=== PATIENT | female | born 1995 | race Caucasian/White ===

== ENCOUNTER 2021-03-07 02:43 | Emergency (ER) | payer OTHER, SELFPAY ==
[2021-03-07 02:44] VITALS: BP 125/85; PULSE 135; RESP 16; TEMP 37; O2SAT 99; BMI 19.3
[2021-03-07 03:03] LABS: UPreg QC Valid YES; Urine Pregnancy NEGATIVE (NEGATIVE)
[2021-03-07 03:36] VITALS: BP 122/64; PULSE 120; RESP 18; TEMP 36.6; O2SAT 100
[2021-03-07 04:13] LABS: Appearance Urine HAZY; Color Urine YELLOW; Glucose Urine UA NEG (NEG); Leukocyte Esterase Urine 2+ (NEG); Nitrite Urine NEG (NEG); PH 6.5 (5.0-8.0); Urine Blood 2+ (NEG); Urine Ketones NEG (NEG); Urine Protein TRACE MG/DL (NEG-TRACE)
[2021-03-07 04:20] LABS: Mucus Urine 2+ /LPF; WBC Urine 30-49 /HPF (0-4)
[2021-03-07 04:21] LABS: Bacteria Urine 3+ /LPF; Squamous Epithelial Cell Urine 1+ /LPF
--- NOTE | 2021-03-07 04:29 | ED_ITS ---
HPI - General Adult General Chief complaint: General Medical Stated complaint: Pain Time Seen by Provider: 03/07/21 04:03 Source: patient Mode of arrival: ambulatory Limitations: no limitations History of Present Illness HPI narrative: History of kidney stone noticed pain in the right flank earlier today later moved to the left flank no nausea no vomiting no dysuria no frequency no fever no chills pain started when patient was moving bowels. No vaginal discharge no pain related to the Bactrim pain does not increase on deep inspiration Related Data Previous Rx's Medication Instructions Recorded levofloxacin 500 mg tablet 500 mg PO DAILY 5 Days #5 tab 03/07/21 Allergies Allergy/AdvReac Type Severity Reaction Status Date / Time No Known Allergies Allergy Verified 03/07/21 04:04 Review of Systems Review of Systems: Yes all other systems are reviewed and are negative [facility] Past Medical History Medical History Anxiety IBS (irritable bowel syndrome) Kidney stone Social History Social History Alcohol intake: never Patient Tobacco Use Status: Never used Tobacco Use of substances other than those prescribed or required for medical reasons: No Advance Directives: No Advance Directives Information Provided: No Patient : No Physical Exam Vital Signs: Vital Signs: Last Vital Signs Temp 98.2 F 03/07/21 04:43 Pulse 112 H 03/07/21 04:43 Resp 18 03/07/21 04:43 BP 118/64 03/07/21 04:43 Pulse Ox 100 03/07/21 04:43 Body Mass Index 19.3 Appearance: Alert. Oriented X3. No acute distress. Eyes: No pallor or icterus ENT: Pharynx normal. Oral Mucosa moist Neck: Normal inspection. Neck supple. CVS: Normal heart rate and rhythm. Pulses normal. Respiratory: No respiratory distress. Equal air entry bilateral, no wheezing/rales/rhonchi Abdomen: Soft and nontender. Bowel sounds are present, no mass palpable, mild left CVA tenderness Skin: Skin warm and dry. Normal skin color. Normal skin turgor. Extremities: No lower extremity edema. No calf tenderness Neuro: Oriented X 3. Medical Decision Making Lab Data Lab results reviewed: Yes I reviewed the patient's lab results. Labs: Lab Results 03/07/21 03/07/21 Range/Units 02:54 02:54 Urine Color YELLOW Urine Appearance HAZY Urine pH 6.5 (5.0-8.0) Ur Specific [place] 1.020 (1.005-1.025) Urine Protein TRACE (NEG-TRACE) MG/DL Urine Glucose (UA) NEG (NEG) MG/DL Urine Ketones NEG (NEG) MG/DL Urine Blood 2+ H (NEG) Urine Nitrite NEG (NEG) Ur Leukocyte Esterase 2+ H (NEG) Urine RBC 10-14 H (0) /HPF Urine WBC 30-49 H (0-4) /HPF Ur Squamous Epith Cells 1+ /LPF Urine Bacteria 3+ /LPF Urine Mucus 2+ /LPF Urine Test NEGATIVE (NEGATIVE) Discharge Plan Discharge Clinical Impression: UTI (urinary tract infection) Qualifiers: Urinary tract infection type: acute cystitis Hematuria presence: with hematuria Qualified Code(s): N30.01 - Acute cystitis with hematuria Patient Disposition: Home, Self-Care Instructions: Urinary Tract Infection in Women (ED) Additional Instructions: Drink plenty of fluids Take antibiotic as advised Follow with PCP if not better Prescriptions: New levofloxacin 500 mg tablet 500 mg PO DAILY 5 Days Qty: 5 RF: 0 Interventions: ED Discharge Assessment Last Done: 03/07/21 04:42 Discharge Date/Time: 03/07/21 04:46
[2021-03-07] MEDS: levoFLOXacin 500 MG TABLET PO (04:40)
[2021-03-07 04:43] VITALS: BP 118/64; PULSE 112; RESP 18; TEMP 36.8; O2SAT 100
== END 2021-03-07 04:46 | disposition home or self-care (01) ==
PROVIDERS: Emergency Provider Internal Medicine
DX: N30.01 Acute cystitis with hematuria (principal); Z79.899 Other long term (current) drug therapy
CPT/HCPCS: 36415; 81001; 81025; 87086; 87088; 87186; 99283; 99284

== ENCOUNTER 2022-02-04 16:07 | Outpatient (REF) | payer OTHER, SELFPAY ==
[2022-02-04 16:16] LABS: MANUAL DIFF FLAG NO
[2022-02-04 16:21] LABS: Basophils Absolute Auto 0.1 X10*3/uL (0.0-0.2); Basophils Percent Auto 0.7 % (0-2); Eosinophils Absolute Auto 0.2 X10*3/uL (0.0-0.4); Eosinophils Percent Auto 1.6 % (0-4); Hematocrit 41.1 % (37.0-47.0); Hemoglobin 13.8 g/dl (12.0-16.0); Imm Gran Abs Auto 0.03 X10*3/uL (0.00-0.03); Imm Gran Pct Auto 0.3 % (0.0-0.4); Lymphocytes Absolute Auto 2.3 X10*3/uL (1.2-4.9); Lymphocytes Percent Auto 22.4 % (20-40); Mean Corpuscular HGB Conc 33.6 g/dl (31.0-35.0); Mean Corpuscular Hemoglobin 28.9 pg (27.0-33.0); Mean Corpuscular Volume 86.2 fL (80.0-98.0); Mean Platelet Volume 9.7 fL (9.4-12.3); Monocytes Absolute Auto 0.6 X10*3/uL (0.1-1.2); Monocytes Percent Auto 6.1 % (2-11); Neutrophils Percent Auto 68.9 % (45-73); Platelet Count 338 X10*3/uL (160-400); Red Blood Count 4.77 X10*6/uL (4.20-5.50); White Blood Count 10.1 X10*3/uL (4.8-10.8)
== END 2022-02-04 16:08 | disposition home or self-care (01) ==
LOC: HO.LAB 16:07
PROVIDERS: Visit Provider Obstetrics & Gynecology
DX: N92.1 Excessive and frequent menstruation with irregular cycle (principal)
CPT/HCPCS: 36415; 85025

== ENCOUNTER 2022-05-07 17:10 | Emergency (ER) | payer OTHER, SELFPAY ==
--- NOTE | ~2022-05-07 | US_ITS ---
EXAMINATION: US FIRST TRIMESTER CLINICAL INFORMATION: Vaginal bleeding LMP: Unknown Beta-hCG: Unknown COMPARISON: None available. TECHNIQUE: Transabdominal imaging was performed. FINDINGS: UTERUS AND INTRAUTERINE GESTATIONAL SAC: There is a single intrauterine gestational sac. CROWN-RUMP LENGTH (CRL) : 3.43 cm, estimated age 10 weeks 5 days, estimated date of confinement is 11/30/2022 YOLK SAC: Not found HEART MOTION: 174 BPM. SUBCHORIONIC HEMORRHAGE: None OVARIES: Right: Normal Left: Left ovarian cyst probably follicle 1.8 x 1.4 x 1.6 cm and 1.1 x 1.3 x 1 cm. FREE FLUID: None OTHER FINDINGS: None US/US OB <= 14 weeks fetus IMPRESSION: 1. Single live intrauterine . 2. Estimated age 10 weeks 5 days..
[2022-05-07 17:12] VITALS: BP 137/93; PULSE 90; RESP 18; TEMP 36.9; O2SAT 100; BMI 20.2
--- NOTE | 2022-05-07 17:23 | ED.PREGNANCY ---
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 <Juan Ramon Mullins MD - Last Filed: 05/07/22 17:36> Time Seen by Provider: 05/07/22 17:42 <Juan Ramon Mullins MD - Last Filed: 05/07/22 17:36> Source: patient <Fang Cisneros CNP - Last Filed: 05/07/22 23:17> Mode of arrival: ambulatory <Fang Cisneros CNP - Last Filed: 05/07/22 23:17> Limitations: no limitations <Fang Cisneros CNP - Last Filed: 05/07/22 23:17> History of Present Illness HPI Narrative: Patient is a 27-year-old female G3 T1 L1, reported 11 weeks gestation, last menstrual period unknown, on Depo Provera, estimated due date 11/30/2022 presenting to emergency department for evaluation of vaginal bleeding. She states that she has had ongoing nausea and vomiting for the past 3 weeks, provider was concerned about hyperemesis gravidarum. She was seen by her PCP 3 days ago and received IV fluids. Two days ago she was having brown spotting when she went to the bathroom, this morning spotting was also brown pus and became bright red in color, described as very small amounts noted with urination and upon wiping. Has associated suprapubic pain described as cramping. She endorses urinary frequency but denies dysuria. Denies fevers, chills, back pain. She does report that she has already had an ultrasound which has confirmed intrauterine gestation <Fang Cisneros CNP - Last Filed: 05/07/22 23:17> Related Data Home medications: Previous Rx's Medication Instructions Recorded levofloxacin 500 mg tablet 500 mg PO DAILY 5 days #5 tabs 03/07/21 <Juan Ramon Mullins MD - Last Filed: 05/07/22 17:36> Allergies/Adverse reactions: Allergies Allergy/AdvReac Type Severity Reaction Status Date / Time No Known Allergies Allergy Verified 03/07/21 04:04 <Juan Ramon Mullins MD - Last Filed: 05/07/22 17:36> Review of Systems Review of Systems: Constitutional : No Fever, No Chills ENT/Mouth : No sore throat, No Rhinorrhea Eyes: No Eye Pain, No Redness Cardiovascular : No Chest Pain, No SOB Respiratory : No Cough, No Sputum, No Wheezing Gastrointestinal : positive Nausea, positive Vomiting, No Diarrhea, positive abdominal pain, Genitourinary : positive irregular bleeding, No Dysuria, No Urinary Frequency, positive pelvic pain Musculoskeletal : No Myalgias Skin : No rash Neuro : No Weakness, No Headache Psych : No Anxiety/Panic, No Depression Heme/Lymph: No bruising, No Lymphadenopathy Endocrine : No Polyuria, No Polydipsia <Fang Cisneros CNP - Last Filed: 05/07/22 23:17> Yes all other systems are reviewed and are negative <Fang Cisneros CNP - Last Filed: 05/07/22 23:17> PMFSH Past Medical History Attestation statement: The following information was validated with the patient. <Fang Cisneros CNP - Last Filed: 05/07/22 23:17> Source: old records reviewed <Fang Cisneros CNP - Last Filed: 05/07/22 23:17> Medical History: Medical History Anxiety IBS (irritable bowel syndrome) Kidney stone <Juan Ramon Mullins MD - Last Filed: 05/07/22 17:36> Social History Social History: Social History Alcohol intake: never Patient Tobacco Use Status: Never used Tobacco Use of substances other than those prescribed or required for medical reasons: No Advance Directives: No Advance Directives Information Provided: No Patient : Yes <Juan Ramon Mullins MD - Last Filed: 05/07/22 17:36> Physical Exam Vital Signs: Vital Signs: Last Vital Signs Temp 98.5 F 05/07/22 17:12 Pulse 71 05/07/22 21:23 Resp 16 05/07/22 21:23 BP 119/77 05/07/22 21:23 Pulse Ox 100 05/07/22 21:23 O2 Del Method 05/07/22 21:23 BMI result Body Mass Index 20.2 <Juan Ramon Mullins MD - Last Filed: 05/07/22 17:36> Vital Signs: Last Vital Signs Temp 98.5 F 05/07/22 17:12 Pulse 71 05/07/22 21:23 Resp 16 05/07/22 21:23 BP 119/77 05/07/22 21:23 Pulse Ox 100 05/07/22 21:23 O2 Del Method 05/07/22 21:23 BMI result Body Mass Index 20.2 <Fang Cisneros CNP - Last Filed: 05/07/22 23:17> Appearance: Alert.?Oriented to person, place and time. No acute distress.?Normal affect. Eyes: Pupils equal, round and reactive to light.? ENT: Pharynx normal.?? Neck: Normal inspection.? Neck supple.?? CVS: Heart sounds normal. Normal heart rate and rhythm.? Pulses normal.?? Respiratory: No respiratory distress.? Lung sounds clear to auscultation bilaterally?? Abdomen: Soft and non-tender. Normoactive bowel sounds. ?No CVA tenderness Skin: Skin warm and dry.? Normal skin color.? Extremities: No lower extremity edema.? Neuro: Moves all extremities spontaneously. Sensation intact bilaterally. No focal neuro deficits. Ambulates with normal steady gait. Genitourinary:? Supervised by ED RN. Normal external appearance of urethra.? No lesions/lacerations or discharge or tenderness noted. No Bartholin cyst noted.? Speculum exam: normal appearance/palpation of vagina normal. Positive vaginal discharge. No swelling, erythema, laceratons, or active bleeding noted.?No foreign bodies noted.?Normal appearance of cervix. Normal palpation of cervix.? Cervical os is closed.? No abnormal cervical discharge noted.? No cervical lesion/mass.?? No cervical motion tenderness noted.? Negative chandelier sign.? Normal bimanual exam. Normal adnexa. . <Fang Cisneros CNP - Last Filed: 05/07/22 23:17> Course Course Course Narrative: RME: 27-year-old female (1 therapeutic ), unknown LMP (on Depo-Provera), EDC 11/30/2022 who presents emergency department for evaluation of nausea vomiting x3 weeks with vaginal bleeding which started on Thursday (3 days prior to evaluation). Patient was seen by her PCP on Thursday for IV fluid secondary to dehydration. Patient states that her pain is mainly suprapubic area when she describes the cramping sensation. She does have an ultrasound earlier in the rule out ectopic which was normal. She describes the bleeding as small amounts of bright red blood when she urinates or wipes herself. She has had urinary frequency but no dysuria. Vital signs did reveal an elevated blood pressure of 137/93 but the patient is anxious and in distress. Patient does have mild suprapubic tenderness, no CVA tenderness. I ordered a CBC, CMP, quantitative beta-hCG, urinalysis, ultrasound OB less than 14 weeks, ultrasound transvaginal. I also ordered normal saline 1 L IV and Reglan 10 mg IV. I offered Tylenol but the patient does not want this at this time for pain. <Juan Ramon Mullins MD - Last Filed: 05/07/22 17:36> Reevaluation(s) Reevaluation #1: Tolerated pelvic examination well, reported mild suprapubic cramping. No vaginal bleeding noted, no lesions or wounds. Cervical os is closed. Scant amount of white/yellow discharge, sample for bacterial vaginosis urine was obtained. Declined testing for chlamydia gonorrhea, states that she was just tested a couple weeks ago which was negative. CBC is overall unremarkable, no leukocytosis, normocytic anemia is present, does not meet transfusion criteria. CMP is normal. HCG within range for reported gestation Patient is Rh positive, would not require RhoGAM urinalysis with trace leukocyte esterase, squamous epithelial cells present, no WBC or bacteria seen, no microscopic hematuria. <Fang Cisneros CNP - Last Filed: 05/07/22 23:17> Time: 18:24 <Fang Cisneros CNP - Last Filed: 05/07/22 23:17> Reevaluation #2: Ultrasound reveals a single live intrauterine with estimated age 10 weeks 5 days, no subchorionic hemorrhage, otherwise appears unremarkable. Discussed these findings with patient. Advised outpatient follow-up with OB, discussed threatened , all questions answered. At this time she is stable for discharge home. <Fang Cisneros CNP - Last Filed: 05/07/22 23:17> Time: 21:13 <Fang Cisneros CNP - Last Filed: 05/07/22 23:17> Medications Administered Discontinued Medications Generic Name Dose Route Start Last Admin Trade Name Freq PRN Reason Stop Dose Admin Sodium Chloride 1,000 mls @ 999 mls/hr 05/07/22 17:29 05/07/22 18:58 Ns IV 05/07/22 18:29 Infused .Q1H1M STA Infusion Metoclopramide HCl 10 mg 05/07/22 17:29 05/07/22 21:21 Metoclopramide Hcl 10 Mg/2 Ml Vial IVPUSH 05/07/22 17:30 Not Given ONCE STA <Juan Ramon Mullins MD - Last Filed: 05/07/22 17:36> Medications Administered Discontinued Medications Generic Name Dose Route Start Last Admin Trade Name Freq PRN Reason Stop Dose Admin Sodium Chloride 1,000 mls @ 999 mls/hr 05/07/22 17:29 05/07/22 18:58 Ns IV 05/07/22 18:29 Infused .Q1H1M STA Infusion Metoclopramide HCl 10 mg 05/07/22 17:29 05/07/22 21:21 Metoclopramide Hcl 10 Mg/2 Ml Vial IVPUSH 05/07/22 17:30 Not Given ONCE STA <Fang Cisneros CNP - Last Filed: 05/07/22 23:17> Medical Decision Making Medical Decision Making MDM Narrative: Patient is a 27-year-old female G3 T1 L1 reportedly 11 weeks with past medical history of Anxiety, irritable bowel syndrome, renal calculi who presents to emergency department for evaluation of concern for vaginal bleeding. History of patient cannot state with certainty whether it is vaginal or urethral in nature, is only noted upon urination and when wiping. Pelvic examination is overall unremarkable, no vaginal bleeding noted, vaginal discharge present. Reviewed RME from above, labs, urinalysis, ultrasound pending at this time. <Fang Cisneros CNP - Last Filed: 05/07/22 23:17> Differential Diagnosis Differential Diagnoses: The differential diagnosis associated with the presentation includes <Fang Cisneros CNP - Last Filed: 05/07/22 23:17> Urinary tract infection, pyelonephritis, nephrolithiasis, threatened , ectopic though seems less likely given her report of prior ultrasound with confirmed intrauterine gestation <Fang Cisneros CNP - Last Filed: 05/07/22 23:17> Lab Data MDM Lab Attestation statement: I reviewed the patient's lab results. <Fang Cisneros CNP - Last Filed: 05/07/22 23:17> Result Diagrams: : 05/07/22 17:42 05/07/22 17:42 <Juan Ramon Mullins MD - Last Filed: 05/07/22 17:36> Labs: Lab Results 05/07/22 05/07/22 05/07/22 Range/Units 17:32 17:42 17:42 WBC 10.4 (4.8-10.8) X10*3/uL RBC 4.09 L (4.20-5.50) X10*6/uL Hgb 11.9 L (12.0-16.0) g/dl Hct 34.9 L (37.0-47.0) % MCV 85.3 (80.0-98.0) fL MCH 29.1 (27.0-33.0) pg MCHC 34.1 (31.0-35.0) g/dl RDW 12.0 (11.0-16.0) % Plt Count 305 (160-400) X10*3/uL MPV 10.0 (9.4-12.3) fL Immature Gran % (Auto) 0.3 (0.0-0.4) % Neut % (Auto) 66.6 (45-73) % Lymph % (Auto) 23.5 (20-40) % Andrew % (Auto) 8.1 (2-11) % Eos % (Auto) 1.0 (0-4) % Baso % (Auto) 0.5 (0-2) % Lymph # (Auto) 2.5 (1.2-4.9) X10*3/uL Andrew # (Auto) 0.8 (0.1-1.2) X10*3/uL Eos # (Auto) 0.1 (0.0-0.4) X10*3/uL Baso # (Auto) 0.1 (0.0-0.2) X10*3/uL Abs Immat Gran (auto) 0.03 (0.00-0.03) X10*3/uL Absolute Neuts (auto) 6.9 (2.0-8.3) x10*3/uL Absolute Nucleated RBC 0.000 (0.0-0.012) X10*3/uL Nucleated RBC % (auto) 0.0 (0.0-0.2) /100WBC Sodium 138 (135-145) mmol/L Potassium 3.6 (3.3-5.1) mmol/L Chloride 106 (96-108) mmol/L Carbon Dioxide 23 (22-29) mmol/L Anion Gap 13 (12-20) BUN 10 (9-16) mg/dL Creatinine 0.64 (0.5-1.4) mg/dL Estim Creat Clear Calc 102.5 Estimated GFR > 60 Random Glucose 100 (60-115) mg/dL Calcium 9.9 (8.4-10.2) mg/dL Total Bilirubin 0.5 (0.0-1.0) mg/dL AST 16 (5-31) U/L ALT 11 (0-31) U/L Alkaline Phosphatase 51 (39-117) U/L Total Protein 6.9 (6.5-8.0) g/dL Albumin 4.5 (3.5-5.0) g/dL Beta HCG, Quant > 355993 mIU/mL Urine Color Yellow Urine Appearance Clear Urine pH 6.5 (5.0-9.0) Ur Specific [place] 1.025 (1.005-1.025) Urine Protein Negative (Neg-Trace) mg/dL Urine Glucose (UA) Negative (Negative) mg/dL Urine Ketones Negative (Negative) mg/dL Urine Blood Negative (Negative) Urine Nitrite Negative (Negative) Ur Leukocyte Esterase Trace H (Negative) Urine RBC 0-2 (0-2) /HPF Urine WBC 0-5 (0-5) /HPF Ur Squamous Epith Cells 3-5 (0-2) /HPF Urine Bacteria None Seen (None Seen) Hyaline Casts 0-2 (0-2) /LPF Blood Type 05/07/22 Range/Units 17:42 WBC (4.8-10.8) X10*3/uL RBC (4.20-5.50) X10*6/uL Hgb (12.0-16.0) g/dl Hct (37.0-47.0) % MCV (80.0-98.0) fL MCH (27.0-33.0) pg MCHC (31.0-35.0) g/dl RDW (11.0-16.0) % Plt Count (160-400) X10*3/uL MPV (9.4-12.3) fL Immature Gran % (Auto) (0.0-0.4) % Neut % (Auto) (45-73) % Lymph % (Auto) (20-40) % Andrew % (Auto) (2-11) % Eos % (Auto) (0-4) % Baso % (Auto) (0-2) % Lymph # (Auto) (1.2-4.9) X10*3/uL Andrew # (Auto) (0.1-1.2) X10*3/uL Eos # (Auto) (0.0-0.4) X10*3/uL Baso # (Auto) (0.0-0.2) X10*3/uL Abs Immat Gran (auto) (0.00-0.03) X10*3/uL Absolute Neuts (auto) (2.0-8.3) x10*3/uL Absolute Nucleated RBC (0.0-0.012) X10*3/uL Nucleated RBC % (auto) (0.0-0.2) /100WBC Sodium (135-145) mmol/L Potassium (3.3-5.1) mmol/L Chloride (96-108) mmol/L Carbon Dioxide (22-29) mmol/L Anion Gap (12-20) BUN (9-16) mg/dL Creatinine (0.5-1.4) mg/dL Estim Creat Clear Calc Estimated GFR Random Glucose (60-115) mg/dL Calcium (8.4-10.2) mg/dL Total Bilirubin (0.0-1.0) mg/dL AST (5-31) U/L ALT (0-31) U/L Alkaline Phosphatase (39-117) U/L Total Protein (6.5-8.0) g/dL Albumin (3.5-5.0) g/dL Beta HCG, Quant mIU/mL Urine Color Urine Appearance Urine pH (5.0-9.0) Ur Specific [place] (1.005-1.025) Urine Protein (Neg-Trace) mg/dL Urine Glucose (UA) (Negative) mg/dL Urine Ketones (Negative) mg/dL Urine Blood (Negative) Urine Nitrite (Negative) Ur Leukocyte Esterase (Negative) Urine RBC (0-2) /HPF Urine WBC (0-5) /HPF Ur Squamous Epith Cells (0-2) /HPF Urine Bacteria (None Seen) Hyaline Casts (0-2) /LPF Blood Type O Positive <Juan Ramon Mullins MD - Last Filed: 05/07/22 17:36> Lab Results 05/07/22 05/07/22 05/07/22 Range/Units 17:32 17:42 17:42 WBC 10.4 (4.8-10.8) X10*3/uL RBC 4.09 L (4.20-5.50) X10*6/uL Hgb 11.9 L (12.0-16.0) g/dl Hct 34.9 L (37.0-47.0) % MCV 85.3 (80.0-98.0) fL MCH 29.1 (27.0-33.0) pg MCHC 34.1 (31.0-35.0) g/dl RDW 12.0 (11.0-16.0) % Plt Count 305 (160-400) X10*3/uL MPV 10.0 (9.4-12.3) fL Immature Gran % (Auto) 0.3 (0.0-0.4) % Neut % (Auto) 66.6 (45-73) % Lymph % (Auto) 23.5 (20-40) % Andrew % (Auto) 8.1 (2-11) % Eos % (Auto) 1.0 (0-4) % Baso % (Auto) 0.5 (0-2) % Lymph # (Auto) 2.5 (1.2-4.9) X10*3/uL Andrew # (Auto) 0.8 (0.1-1.2) X10*3/uL Eos # (Auto) 0.1 (0.0-0.4) X10*3/uL Baso # (Auto) 0.1 (0.0-0.2) X10*3/uL Abs Immat Gran (auto) 0.03 (0.00-0.03) X10*3/uL Absolute Neuts (auto) 6.9 (2.0-8.3) x10*3/uL Absolute Nucleated RBC 0.000 (0.0-0.012) X10*3/uL Nucleated RBC % (auto) 0.0 (0.0-0.2) /100WBC Sodium 138 (135-145) mmol/L Potassium 3.6 (3.3-5.1) mmol/L Chloride 106 (96-108) mmol/L Carbon Dioxide 23 (22-29) mmol/L Anion Gap 13 (12-20) BUN 10 (9-16) mg/dL Creatinine 0.64 (0.5-1.4) mg/dL Estim Creat Clear Calc 102.5 Estimated GFR > 60 Random Glucose 100 (60-115) mg/dL Calcium 9.9 (8.4-10.2) mg/dL Total Bilirubin 0.5 (0.0-1.0) mg/dL AST 16 (5-31) U/L ALT 11 (0-31) U/L Alkaline Phosphatase 51 (39-117) U/L Total Protein 6.9 (6.5-8.0) g/dL Albumin 4.5 (3.5-5.0) g/dL Beta HCG, Quant > 323365 mIU/mL Urine Color Yellow Urine Appearance Clear Urine pH 6.5 (5.0-9.0) Ur Specific [place] 1.025 (1.005-1.025) Urine Protein Negative (Neg-Trace) mg/dL Urine Glucose (UA) Negative (Negative) mg/dL Urine Ketones Negative (Negative) mg/dL Urine Blood Negative (Negative) Urine Nitrite Negative (Negative) Ur Leukocyte Esterase Trace H (Negative) Urine RBC 0-2 (0-2) /HPF Urine WBC 0-5 (0-5) /HPF Ur Squamous Epith Cells 3-5 (0-2) /HPF Urine Bacteria None Seen (None Seen) Hyaline Casts 0-2 (0-2) /LPF Blood Type 05/07/22 Range/Units 17:42 WBC (4.8-10.8) X10*3/uL RBC (4.20-5.50) X10*6/uL Hgb (12.0-16.0) g/dl Hct (37.0-47.0) % MCV (80.0-98.0) fL MCH (27.0-33.0) pg MCHC (31.0-35.0) g/dl RDW (11.0-16.0) % Plt Count (160-400) X10*3/uL MPV (9.4-12.3) fL Immature Gran % (Auto) (0.0-0.4) % Neut % (Auto) (45-73) % Lymph % (Auto) (20-40) % Andrew % (Auto) (2-11) % Eos % (Auto) (0-4) % Baso % (Auto) (0-2) % Lymph # (Auto) (1.2-4.9) X10*3/uL Andrew # (Auto) (0.1-1.2) X10*3/uL Eos # (Auto) (0.0-0.4) X10*3/uL Baso # (Auto) (0.0-0.2) X10*3/uL Abs Immat Gran (auto) (0.00-0.03) X10*3/uL Absolute Neuts (auto) (2.0-8.3) x10*3/uL Absolute Nucleated RBC (0.0-0.012) X10*3/uL Nucleated RBC % (auto) (0.0-0.2) /100WBC Sodium (135-145) mmol/L Potassium (3.3-5.1) mmol/L Chloride (96-108) mmol/L Carbon Dioxide (22-29) mmol/L Anion Gap (12-20) BUN (9-16) mg/dL Creatinine (0.5-1.4) mg/dL Estim Creat Clear Calc Estimated GFR Random Glucose (60-115) mg/dL Calcium (8.4-10.2) mg/dL Total Bilirubin (0.0-1.0) mg/dL AST (5-31) U/L ALT (0-31) U/L Alkaline Phosphatase (39-117) U/L Total Protein (6.5-8.0) g/dL Albumin (3.5-5.0) g/dL Beta HCG, Quant mIU/mL Urine Color Urine Appearance Urine pH (5.0-9.0) Ur Specific [place] (1.005-1.025) Urine Protein (Neg-Trace) mg/dL Urine Glucose (UA) (Negative) mg/dL Urine Ketones (Negative) mg/dL Urine Blood (Negative) Urine Nitrite (Negative) Ur Leukocyte Esterase (Negative) Urine RBC (0-2) /HPF Urine WBC (0-5) /HPF Ur Squamous Epith Cells (0-2) /HPF Urine Bacteria (None Seen) Hyaline Casts (0-2) /LPF Blood Type O Positive <Fang Cisneros CNP - Last Filed: 05/07/22 23:17> Radiology Impression Discussion of test interpretation with radiology: I have reviewed the radiologist's reading. <Fang Cisneros CNP - Last Filed: 05/07/22 23:17> Radiologist Impression: US/ OB <= 14 weeks fetus IMPRESSION: 1. Single live intrauterine . ? 2. Estimated age 10 weeks 5 days. <Fang Cisneros CNP - Last Filed: 05/07/22 23:17> Discharge Plan Discharge Clinical Impression: Threatened <Juan Ramon Mullins MD - Last Filed: 05/07/22 17:36> Patient Disposition: Home, Self-Care <Juan Ramon Mullins MD - Last Filed: 05/07/22 17:36> Instructions: Threatened Miscarriage (ED) <Juan Ramon Mullins MD - Last Filed: 05/07/22 17:36> Additional Instructions: As discussed, please continue to monitor this bleeding. Contact your OB provider in the morning to arrange for further follow-up and treatment You may return to emergency department with any new or worsening symptoms or concerns. You can take Tylenol 500 mg, 2 tablets (1,000mg) every 4-6 hours as needed for pain, but not to exceed 3 doses daily (3,000mg).? <Juan Ramon Mullins MD - Last Filed: 05/07/22 17:36> Prescriptions: No Action levofloxacin 500 mg tablet 500 mg PO DAILY 5 Days Qty: 5 0RF <Juan Ramon Mullins MD - Last Filed: 05/07/22 17:36> Referrals: Physician,Unknown J [Primary Care Provider] - <Juan Ramon Mullins MD - Last Filed: 05/07/22 17:36> Interventions: ED Discharge Assessment Last Done: 05/07/22 21:30 <Juan Ramon Mullins MD - Last Filed: 05/07/22 17:36> Discharge Date/Time: 05/07/22 21:32 <Juan Ramon Mullins MD - Last Filed: 05/07/22 17:36>
[2022-05-07 17:40] LABS: Appearance Urine Clear; Color Urine Yellow; Glucose Urine UA Negative (Negative); Leukocyte Esterase Urine Trace (Negative); Nitrite Urine Negative (Negative); PH 6.5 (5.0-9.0); Specific Gravity - Urine 1.025 (1.005-1.025); UMIC TRIGGER UACC YES; Urine Blood Negative (Negative); Urine Ketones Negative (Negative); Urine Protein Negative (Neg-Trace)
[2022-05-07 17:45] LABS: Bacteria Urine None Seen (None Seen); Hyaline Casts Urine 0-2 /LPF (0-2); RBC Urine 0-2 /HPF (0-2); WBC Urine 0-5 /HPF (0-5)
[2022-05-07 17:47] LABS: Basophils Absolute Auto 0.1 X10*3/uL (0.0-0.2); Basophils Percent Auto 0.5 % (0-2); Eosinophils Absolute Auto 0.1 X10*3/uL (0.0-0.4); Hematocrit 34.9 % (37.0-47.0); Hemoglobin 11.9 g/dl (12.0-16.0); Imm Gran Abs Auto 0.03 X10*3/uL (0.00-0.03); Imm Gran Pct Auto 0.3 % (0.0-0.4); Lymphocytes Absolute Auto 2.5 X10*3/uL (1.2-4.9); Lymphocytes Percent Auto 23.5 % (20-40); MANUAL DIFF FLAG NO; Mean Corpuscular HGB Conc 34.1 g/dl (31.0-35.0); Mean Corpuscular Hemoglobin 29.1 pg (27.0-33.0); Mean Corpuscular Volume 85.3 fL (80.0-98.0); Monocytes Absolute Auto 0.8 X10*3/uL (0.1-1.2); Monocytes Percent Auto 8.1 % (2-11); Neutrophils Absolute Auto 6.9 x10*3/uL (2.0-8.3); Neutrophils Percent Auto 66.6 % (45-73); Platelet Count 305 X10*3/uL (160-400); Red Blood Count 4.09 X10*6/uL (4.20-5.50); White Blood Count 10.4 X10*3/uL (4.8-10.8)
[2022-05-07] MEDS: 0.9 % Sodium Chloride 1,000 ML 999 ML IV (17:49)
[2022-05-07 17:50] VITALS: BP 122/88; PULSE 84; RESP 20; O2SAT 100
[2022-05-07 18:20] LABS: Alanine Aminotransferase 11 U/L (0-31); Albumin Level 4.5 g/dL (3.5-5.0); Alkaline Phosphatase 51 U/L (39-117); Anion Gap 13 (12-20); Aspartate Amino Transferase 16 U/L (5-31); Bilirubin Total 0.5 mg/dL (0.0-1.0); Blood Urea Nitrogen 10 mg/dL (9-16); Calcium 9.9 mg/dL (8.4-10.2); Carbon Dioxide 23 mmol/L (22-29); Chloride 106 mmol/L (96-108); Creatinine Clr Calc Pharmacy 102.5; Estimated Glomerular Filt Rate > 60; Glucose Random 100 mg/dL (60-115); Potassium 3.6 mmol/L (3.3-5.1); Sodium 138 mmol/L (135-145); Total Protein 6.9 g/dL (6.5-8.0)
[2022-05-07 19:00] VITALS: BP 126/84; PULSE 94; RESP 18; O2SAT 100
[2022-05-07 21:04] LABS: HCG Quantitative > 225000 mIU/mL
[2022-05-07 21:23] VITALS: BP 119/77; PULSE 71; RESP 16; O2SAT 100
[2022-05-08 12:18] LABS: BV Int Neg Control Negative (Negative); BV Int Pos Control Positive (Positive)
== END 2022-05-07 21:32 | disposition home or self-care (01) ==
PROVIDERS: Nurse Practitioner Family; Emergency Provider Emergency Medicine Emergency Medical Services
DX: O20.0 Threatened abortion (principal); Z3A.10 10 weeks gestation of pregnancy; O21.9 Vomiting of pregnancy, unspecified
CPT/HCPCS: 36415; 76801; 80053; 81001; 84702; 85025; 86900; 86901; 87480; 87510; 87660; 96360; 99284

== ENCOUNTER 2022-06-30 13:28 | Emergency (ER) | payer OTHER, SELFPAY | END 2022-06-30 15:40 | disposition left against medical advice (07) | PROVIDERS: Emergency Provider Emergency Medicine; PCP Internal Medicine | DX: I95.9 Hypotension, unspecified (principal) ==

== ENCOUNTER 2022-10-30 11:26 | Outpatient (REF) | payer OTHER, SELFPAY ==
[2022-10-30 11:36] LABS: MANUAL DIFF FLAG NO
[2022-10-30 11:50] LABS: Basophils Absolute Auto 0.1 X10*3/uL (0.0-0.2); Basophils Percent Auto 0.5 % (0-2); Eosinophils Absolute Auto 0.2 X10*3/uL (0.0-0.4); Eosinophils Percent Auto 1.3 % (0-4); Imm Gran Abs Auto 0.23 X10*3/uL (0.00-0.03); Immature Retic Fraction 37.7 % (3.0-15.9); Lymphocytes Percent Auto 17.8 % (20-40); Mean Corpuscular HGB Conc 32.3 g/dl (31.0-35.0); Mean Corpuscular Hemoglobin 26.9 pg (27.0-33.0); Mean Corpuscular Volume 83.3 fL (80.0-98.0); Mean Platelet Volume 9.2 fL (9.4-12.3); Monocytes Absolute Auto 0.8 X10*3/uL (0.1-1.2); Monocytes Percent Auto 6.6 % (2-11); Neutrophils Absolute Auto 8.1 x10*3/uL (2.0-8.3); Neutrophils Percent Auto 71.8 % (45-73); Platelet Count 306 X10*3/uL (160-400); Red Blood Count 3.72 X10*6/uL (4.20-5.50); Red Cell Distribution Width 13.9 % (11.0-16.0); Retic HGB Equivalent 27.3 pg (30.0-35.0); Reticulocyte Percent 2.6 % (0.5-1.8); Reticulocytes Absolute 0.096 X10*6/uL (0.026-0.095); White Blood Count 11.3 X10*3/uL (4.8-10.8)
[2022-10-30 12:29] LABS: Iron 39 mcg/dL (30-160); Percent Iron Saturation 8 % (15-50); Total Iron Binding Capacity 466 mcg/dL (228-428); Unsaturated Iron Binding 427 ug/dL
[2022-10-30 12:46] LABS: Ferritin 8 ng/mL (10-122)
[2022-10-30 12:59] LABS: Folate 13.4 ng/mL (> or = 4.0); Vitamin B12 284 pg/mL (200-900)
== END 2022-10-30 11:27 | disposition home or self-care (01) ==
LOC: HO.LAB 11:26
PROVIDERS: Visit Provider Internal Medicine
DX: O99.019 Anemia complicating pregnancy, unspecified trimester (principal)
CPT/HCPCS: 36415; 82607; 82728; 82746; 83540; 85025; 85045

== ENCOUNTER 2023-03-10 11:09 | Emergency (ER) | payer OTHER, SELFPAY ==
--- NOTE | ~2023-03-10 | CT_ITS ---
EXAMINATION: CT ABDOMEN AND PELVIS WITHOUT CONTRAST CLINICAL INFORMATION: Left flank pain COMPARISON: None available. TECHNIQUE: Multidetector volumetric imaging was performed from the superior aspect of the liver through the pubic symphysis. Sagittal and coronal reformatted images were obtained on the technologist's workstation. This CT examination was performed using dose optimization techniques as appropriate, variously including the following: *Automated exposure control *Adjustment of mA and/or kV according to patient size (this includes techniques or standardized protocols for targeted exams where dose is matched to indication/reason for exam; i.e. extremities or head) *Use of iterative reconstruction technique DLP: 334 mGy-cm FINDINGS: LUNG BASES: The lung bases are clear. The heart size is normal. LIVER, GALLBLADDER, AND BILIARY TREE: The liver is normal in size, shape, and attenuation. No focal hepatic lesion or biliary ductal dilatation is present. The gallbladder is unremarkable with no evidence of radiopaque gallstones, gallbladder wall thickening, or obvious pericholecystic inflammatory changes. PANCREAS: Unremarkable. SPLEEN: Unremarkable. ADRENAL GLANDS: Unremarkable. KIDNEYS AND URETERS: The kidneys are normal in size, shape, and attenuation. There are punctate calcification/calculi seen in the upper mid and lower pole left kidney. The largest measuring 1 mm midpole left kidney image 24/82. There is mild left hydroureter secondary to 3 mm nonobstructive stone left UVJ, axial image 70/82. Hypodense pyramids are seen in the right kidney likely nephrocalcinosis. No right hydronephrosis seen. BLADDER: The bladder is nondistended. GASTROINTESTINAL TRACT: There is moderate stool and gas seen in the colon without distention. The small bowel loops are normal caliber. The stomach is distended with recently ingested food. No free air or free fluid seen. ABDOMINAL WALL: Unremarkable LYMPH NODES: Normal. VASCULAR: Unremarkable. PELVIC VISCERA: The uterus is anteverted. No adnexal mass or free fluid seen. OSSEOUS STRUCTURES: Unremarkable. CT/CT abdomen pelvis wo IV con IMPRESSION: 1. 3 mm nonobstructive left UVJ stone with mild hydroureteronephrosis. 2. There are punctate nonobstructive left renal calculi. 3. 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 No right hydronephrosis seen. 4. Mild constipation. Fleischner guidelines were followed.
[2023-03-10 11:13] VITALS: BP 141/90; PULSE 91; RESP 24; TEMP 36.2; O2SAT 100; BMI 21.9
--- NOTE | 2023-03-10 11:24 | ED_ITS ---
HPI - Abdominal Pain General Chief Complaint: Abdominal Pain Stated Complaint: Kidney stone sent by PCP Time Seen by Provider: 03/10/23 13:57 History of Present Illness HPI narrative: Patient complains of left flank pain radiating to groin which is severe pain it started around 5 this morning and woke her up and has continued and now she is nauseous and vomiting She says the pain is the same as a prior kidney stone She denies any dysuria no fever no trauma Related Data Previous Rx's ?Medication ?Instructions ?Recorded levofloxacin 500 mg tablet 500 mg PO DAILY 5 days #5 tabs 03/07/21 Allergies Allergy/AdvReac Type Severity Reaction Status Date / Time levofloxacin [From Levaquin] AdvReac Muscle Pain Verified 03/18/23 18:58 [facility] Past Medical History Source: nursing notes reviewed Medical History Anxiety IBS (irritable bowel syndrome) Kidney stone Social History Social History Alcohol intake: never Patient Tobacco Use Status: Never used Tobacco Physical Exam ED Vital Signs: Vital Signs - 24 hr 03/10/23 11:13 03/10/23 11:58 Temperature 97.2 F Pulse Rate 91 75 Respiratory Rate 24 H 20 Blood Pressure 141/90 H 152/97 H Pulse Oximetry 100 100 Oxygen Delivery Method Room Air Room Air BMI result Body Mass Index 21.9 General appearance is very uncomfortable in pain writhing The head is normocephalic atraumatic 9 Eyes are anicteric no pallor The pharynx is clear mucous membranes moist Neck is supple Respiratory no distress The abdomen added some mild left flank and left lower abdomen tenderness no rebound no guarding, no CVA tenderness Extremities range of motion x4 Skin no rash Course Course Course Narrative: This is rapid medical exam done in triage for for pending full evaluation from provider in ER for full history physical, evaluation of tests and labs and disposition Patient with kidney stone complains of abrupt onset several hours ago of left- sided flank pain and nausea very similar to prior episode of kidney stone Denies fever dysuria, felt fine yesterday Given pain meds nausea meds, CT pending, UA and labs pending CBC and chemistry were normal renal function normal Urinalysis was repeated as 1st 1 was contaminated repeat urinalysis showed blood with 20 rbc's, 0-5 WBC, 3-5 squamous epithelial Patient has no UTI symptoms no discomfort with urination no frequency so very unlikely to have a UTI CT of abdomen and pelvis showed a 3 mm nonobstructive left UVJ stone with mild hydronephrosis as well as punctate nonobstructive left renal calculi Patient responded well to pain medicine and pain was controlled She did urinate and pass a small stone here in the ER so it is likely that her kidney stone is gone and well-appearing patient asymptomatic now was discharged Medical Decision Making Lab Data MDM Lab Attestation statement: I reviewed the patient's lab results. 03/10/23 11:36 03/10/23 11:36 Labs: Lab Results 03/10/23 03/10/23 03/10/23 Range/Units 11:31 11:36 13:33 WBC 7.3 (4.8-10.8) X10*3/uL RBC 4.62 D (4.20-5.50) X10*6/uL Hgb 12.7 D (12.0-16.0) g/dl Hct 38.7 D (37.0-47.0) % MCV 83.8 (80.0-98.0) fL MCH 27.5 (27.0-33.0) pg MCHC 32.8 (31.0-35.0) g/dl RDW 12.9 (11.0-16.0) % Plt Count 331 (160-400) X10*3/uL MPV 10.3 (9.4-12.3) fL Immature Gran % (Auto) 0.4 (0.0-0.4) % Neut % (Auto) 67.4 (45-73) % Lymph % (Auto) 24.3 (20-40) % [place] % (Auto) 6.4 (2-11) % Eos % (Auto) 0.7 (0-4) % Baso % (Auto) 0.8 (0-2) % Lymph # (Auto) 1.8 (1.2-4.9) X10*3/uL [place] # (Auto) 0.5 (0.1-1.2) X10*3/uL Eos # (Auto) 0.1 (0.0-0.4) X10*3/uL Baso # (Auto) 0.1 (0.0-0.2) X10*3/uL Abs Immat Gran (auto) 0.03 (0.00-0.03) X10*3/uL Absolute Neuts (auto) 4.9 (2.0-8.3) x10*3/uL Absolute Nucleated RBC 0.000 (0.0-0.012) X10*3/uL Nucleated RBC % (auto) 0.0 (0.0-0.2) /100WBC Sodium 142 (135-145) mmol/L Potassium 3.6 (3.3-5.1) mmol/L Chloride 108 (96-108) mmol/L Carbon Dioxide 23 (22-29) mmol/L Anion Gap 15 (12-20) BUN 11 (9-16) mg/dL Creatinine 0.76 (0.5-1.4) mg/dL Estim Creat Clear Calc 86.4 Estimated GFR > 60 Random Glucose 115 (60-115) mg/dL Calcium 9.9 (8.4-10.2) mg/dL Urine Color Yellow Dark Yellow Urine Appearance Turbid Clear Urine pH 5.0 5.5 (5.0-9.0) Ur Specific [place] 1.020 1.025 (1.005-1.025) Urine Protein Negative Trace (Neg-Trace) mg/dL Urine Glucose (UA) Negative Negative (Negative) mg/dL Urine Ketones Negative 15 (Negative) mg/dL Urine Blood Negative Large (3+) H (Negative) Urine Nitrite Negative Negative (Negative) Ur Leukocyte Esterase Moderate (2+) H Trace H (Negative) Urine RBC 3-5 H >20 H (0-2) /HPF Urine WBC >50 H 0-5 (0-5) /HPF Ur Squamous Epith Cells >20 3-5 (0-2) /HPF Urine Bacteria 4+ Trace (None Seen) Hyaline Casts 0-2 3-5 (0-2) /LPF Urine Test NEGATIVE (NEGATIVE) Medications Administered Discontinued Medications Generic Name Dose Route Start Last Admin Trade Name Freq PRN Reason Stop Dose Admin Ketorolac Tromethamine 15 mg 03/10/23 11:19 03/10/23 11:26 Ketorolac Tromethamine 15 Mg/Ml Vial IVPUSH 03/10/23 11:20 15 mg ONCE ONE Administration Morphine Sulfate 4 mg 03/10/23 11:19 03/10/23 11:27 Morphine Sulfate 4 Mg/Ml Cartridge IVPUSH 03/10/23 11:20 4 mg ONCE ONE Administration Protocol Morphine Sulfate 4 mg 03/10/23 11:57 03/10/23 12:01 Morphine Sulfate 4 Mg/Ml Cartridge IVPUSH 03/10/23 11:58 4 mg ONCE ONE Administration Protocol Ondansetron HCl 4 mg 03/10/23 11:19 03/10/23 11:27 Ondansetron Hcl 4 Mg/2 Ml Vial IVPUSH 03/10/23 11:20 4 mg ONCE ONE Administration Discharge Plan Discharge Clinical Impression: Kidney stone Patient Disposition: Home, Self-Care Additional Instructions: [place] CT scan showed a 3 mm stone, in the bathroom you passed a stone that is likely your kidney stone causing the pain Right now pain has resolved Your labs were okay including urinalysis which did not show a urine infection and test was negative Drink plenty of water Return any time any worse condition or any concerns Prescriptions: No Action levofloxacin 500 mg tablet 500 mg PO DAILY 5 Days Qty: 5 0RF Stand Alone Forms: Work/School Release Interventions: ED Discharge Assessment Last Done: 03/10/23 14:10 Discharge Date/Time: 03/10/23 14:11 Print Language: Citizen Of [place]
[2023-03-10] MEDS: Ketorolac Tromethamine 15 MG/ML VIAL IVPUSH (11:26)
[2023-03-10] MEDS: Morphine Sulfate 4 MG/ML CARTRIDGE IVPUSH ×2 (11:27→12:01)
[2023-03-10] MEDS: ondansetron HCL 4 MG/2 ML VIAL IVPUSH (11:27)
[2023-03-10 11:42] LABS: MANUAL DIFF FLAG NO
[2023-03-10 11:45] LABS: Appearance Urine Turbid; Color Urine Yellow; Glucose Urine UA Negative (Negative); Leukocyte Esterase Urine Moderate (2+) (Negative); Nitrite Urine Negative (Negative); UMIC TRIGGER UACC YES; Urine Blood Negative (Negative); Urine Ketones Negative (Negative); Urine Protein Negative (Neg-Trace)
[2023-03-10 11:47] LABS: Basophils Absolute Auto 0.1 X10*3/uL (0.0-0.2); Basophils Percent Auto 0.8 % (0-2); Eosinophils Absolute Auto 0.1 X10*3/uL (0.0-0.4); Eosinophils Percent Auto 0.7 % (0-4); Hematocrit 38.7 % (37.0-47.0); Hemoglobin 12.7 g/dl (12.0-16.0); Imm Gran Abs Auto 0.03 X10*3/uL (0.00-0.03); Imm Gran Pct Auto 0.4 % (0.0-0.4); Lymphocytes Absolute Auto 1.8 X10*3/uL (1.2-4.9); Lymphocytes Percent Auto 24.3 % (20-40); Mean Corpuscular HGB Conc 32.8 g/dl (31.0-35.0); Mean Corpuscular Hemoglobin 27.5 pg (27.0-33.0); Mean Corpuscular Volume 83.8 fL (80.0-98.0); Mean Platelet Volume 10.3 fL (9.4-12.3); Monocytes Absolute Auto 0.5 X10*3/uL (0.1-1.2); Monocytes Percent Auto 6.4 % (2-11); Neutrophils Absolute Auto 4.9 x10*3/uL (2.0-8.3); Neutrophils Percent Auto 67.4 % (45-73); Platelet Count 331 X10*3/uL (160-400); Red Blood Count 4.62 X10*6/uL (4.20-5.50); Red Cell Distribution Width 12.9 % (11.0-16.0); White Blood Count 7.3 X10*3/uL (4.8-10.8)
[2023-03-10 11:49] LABS: UPreg QC Valid YES; Urine Pregnancy NEGATIVE (NEGATIVE)
[2023-03-10 11:58] VITALS: BP 152/97; PULSE 75; RESP 20; O2SAT 100
[2023-03-10 11:58] LABS: Anion Gap 15 (12-20); Blood Urea Nitrogen 11 mg/dL (9-16); Calcium 9.9 mg/dL (8.4-10.2); Carbon Dioxide 23 mmol/L (22-29); Chloride 108 mmol/L (96-108); Creatinine Clr Calc Pharmacy 86.4; Estimated Glomerular Filt Rate > 60; Glucose Random 115 mg/dL (60-115); Potassium 3.6 mmol/L (3.3-5.1); Sodium 142 mmol/L (135-145)
[2023-03-10 12:01] LABS: Bacteria Urine 4+ (None Seen); Hyaline Casts Urine 0-2 /LPF (0-2); Squamous Epithelial Cell Urine >20 /HPF (0-2); UACC Culture Trigger YES; WBC Urine >50 /HPF (0-5)
[2023-03-10 13:42] LABS: Appearance Urine Clear; Color Urine Dark Yellow; Glucose Urine UA Negative (Negative); Leukocyte Esterase Urine Trace (Negative); Nitrite Urine Negative (Negative); PH 5.5 (5.0-9.0); Specific Gravity - Urine 1.025 (1.005-1.025); UMIC TRIGGER UACC YES; Urine Blood Large (3+) (Negative); Urine Ketones 15 mg/dL (Negative); Urine Protein Trace mg/dL (Neg-Trace)
[2023-03-10 13:45] LABS: Bacteria Urine Trace (None Seen); RBC Urine >20 /HPF (0-2); WBC Urine 0-5 /HPF (0-5)
[2023-03-10 14:06] VITALS: BP 132/76; PULSE 93; RESP 16; O2SAT 99
== END 2023-03-10 14:11 | disposition home or self-care (01) ==
PROVIDERS: Physician Assistant Medical; Emergency Provider Emergency Medicine
DX: N13.2 Hydronephrosis with renal and ureteral calculous obstruction (principal); Z87.442 Personal history of urinary calculi
CPT/HCPCS: 36415; 74176; 80048; 81001; 81025; 85025; 87086; 96374; 96375; 96376; 99283; 99284; J1885; J2270; J2405

== ENCOUNTER 2023-03-18 18:45 | Emergency (ER) | payer SELFPAY ==
[2023-03-18 18:58] VITALS: PULSE 97; RESP 20; TEMP 36.8; O2SAT 100; BMI 20.5
== END 2023-03-18 20:23 | disposition left against medical advice (07) ==
LOC: HO.ED 19:57
PROVIDERS: Emergency Provider Emergency Medicine
DX: I10 Essential (primary) hypertension (principal)
CPT/HCPCS: 99281

== ENCOUNTER 2023-07-13 11:54 | Outpatient (REF) | payer OTHER, SELFPAY ==
[2023-07-13 12:19] LABS: MANUAL DIFF FLAG NO
[2023-07-13 12:33] LABS: Basophils Absolute Auto 0.1 X10*3/uL (0.0-0.2); Basophils Percent Auto 0.7 % (0-2); Eosinophils Absolute Auto 0.2 X10*3/uL (0.0-0.4); Eosinophils Percent Auto 1.7 % (0-4); Hematocrit 41.8 % (37.0-47.0); Hemoglobin 13.9 g/dl (12.0-16.0); Imm Gran Abs Auto 0.04 X10*3/uL (0.00-0.03); Imm Gran Pct Auto 0.5 % (0.0-0.4); Lymphocytes Absolute Auto 2.4 X10*3/uL (1.2-4.9); Lymphocytes Percent Auto 27.6 % (20-40); Mean Corpuscular HGB Conc 33.3 g/dl (31.0-35.0); Mean Corpuscular Volume 84.1 fL (80.0-98.0); Mean Platelet Volume 9.9 fL (9.4-12.3); Monocytes Absolute Auto 0.6 X10*3/uL (0.1-1.2); Monocytes Percent Auto 6.3 % (2-11); Neutrophils Absolute Auto 5.6 x10*3/uL (2.0-8.3); Neutrophils Percent Auto 63.2 % (45-73); Platelet Count 314 X10*3/uL (160-400); Red Blood Count 4.97 X10*6/uL (4.20-5.50); Red Cell Distribution Width 13.2 % (11.0-16.0); White Blood Count 8.8 X10*3/uL (4.8-10.8)
[2023-07-13 13:18] LABS: Alanine Aminotransferase 12 U/L (0-31); Albumin Level 4.6 g/dL (3.5-5.0); Alkaline Phosphatase 68 U/L (39-117); Anion Gap 12 (12-20); Aspartate Amino Transferase 16 U/L (5-31); Bilirubin Total 0.6 mg/dL (0.0-1.0); Blood Urea Nitrogen 12 mg/dL (9-16); Calcium 9.9 mg/dL (8.4-10.2); Carbon Dioxide 26 mmol/L (22-29); Chloride 107 mmol/L (96-108); Cholesterol 182 mg/dL (<200); Estimated Glomerular Filt Rate > 60; Glucose Random 94 mg/dL (60-115); HDL Cholesterol 61 mg/dL (>40); LDL Cholesterol Calculated 110 mg/dL (<100); Potassium 3.6 mmol/L (3.3-5.1); Sodium 141 mmol/L (135-145); Total Protein 7.4 g/dL (6.5-8.0); Triglycerides 56 mg/dL (<150)
== END 2023-07-13 11:55 | disposition home or self-care (01) ==
LOC: HO.LAB 11:54
PROVIDERS: Visit Provider Physician Assistant
DX: Z00.00 Encounter for general adult medical examination without abnormal findings (principal); Z13.6 Encounter for screening for cardiovascular disorders
CPT/HCPCS: 36415; 80053; 80061; 85025

== ENCOUNTER 2024-04-17 19:20 | Emergency (ER) | payer OTHER, SELFPAY ==
--- NOTE | ~2024-04-17 | XR_ITS ---
EXAMINATION: XR CHEST CLINICAL INFORMATION: pain COMPARISON: None available. TECHNIQUE: 2 views of the chest were obtained. FINDINGS: No significant abnormality is noted involving the heart, lungs, mediastinum, bony thorax or soft tissues. XR/XR chest 2V IMPRESSION: Unremarkable examination. Electronically signed by: Nathanael Gandhi MD 04/17/2024 08:57 PM [facility]
--- NOTE | 2024-04-17 19:20 | ECG_ITS ---
Test Reason : CP Blood Pressure : / mmHG Vent. Rate : 131 BPM Atrial Rate : 131 BPM P-R Int : 150 ms QRS Dur : 074 ms QT Int : 294 ms P-R-T Axes : 078 097 056 degrees QTc Int : 434 ms Sinus tachycardia Rightward axis Nonspecific ST and T wave abnormality Abnormal ECG No previous ECGs available Referred By: Paris Sin Electronically Signed By:Tom Weldon
[2024-04-17 19:27] VITALS: BP 125/87; PULSE 128; RESP 18; TEMP 36.6; O2SAT 100; BMI 18.2
--- NOTE | 2024-04-17 19:29 | ED.GENADULT ---
HPI - General Adult General Chief complaint: Nausea/Vomiting/Diarrhea Stated complaint: chest pain, stomach virus? Time Seen by Provider: 04/17/24 19:48 Source: patient Mode of arrival: ambulatory Limitations: no limitations History of Present Illness ED Provider: HPI narrative: Patient has been healthy been having nausea vomiting diarrhea since afternoon today vomited more than 10 times and similar number of watery stool no recent use of antibiotics patient's son was sick last week with same no fever no chills no focal abdominal pain no fever no chills no urinary symptoms Related Data Previous Rx's ?Medication ?Instructions ?Recorded levofloxacin 500 mg tablet 500 mg PO DAILY 5 days #5 tabs 03/07/21 loperamide 2 mg tablet (Imodium 2 mg PO Q6H PRN loose stool #14 04/17/24 A-D) tabs ondansetron 4 mg disintegrating 4 mg PO Q6-8H PRN nausea and 04/17/24 tablet vomiting #7 tabs Allergies Allergy/AdvReac Type Severity Reaction Status Date / Time latex Allergy Rash Verified 04/17/24 19:28 levofloxacin [From Levaquin] AdvReac Muscle Pain Verified 04/17/24 19:28 Review of Systems Review of Systems: Yes all other systems are reviewed and are negative PMFSH Past Medical History Medical History Kidney stone Anxiety IBS (irritable bowel syndrome) Social History Social History Alcohol intake: never Patient Tobacco Use Status: Never used Tobacco Smoked in Last 30 Days: No Use of substances other than those prescribed or required for medical reasons: No Advance Directives: No Advance Directives Information Provided: No Physical Exam ED Vital Signs: Vital Signs - 24 hr 04/17/24 19:27 04/17/24 22:19 04/17/24 23:17 Temperature 97.9 F 98.7 F 98.7 F Pulse Rate 128 H 112 H 112 H Respiratory Rate 18 16 16 Blood Pressure 125/87 106/78 106/78 Pulse Oximetry 100 100 100 Oxygen Delivery Method Room Air Room Air Room Air BMI result Body Mass Index 18.2 Appearance: Alert. Oriented X3. No acute distress. Eyes: PERRLA, No Nystagmus ENT: Pharynx normal. Oral Mucosa dry Neck: Normal inspection. Neck supple. CVS: Normal heart rate and rhythm. Pulses normal. Respiratory: No respiratory distress. Equal air entry bilateral, no wheezing/rales/rhonchi Abdomen: Soft and nontender. Bowel sounds are present, no mass palpable, no CVA tenderness Skin: Skin warm and dry. Normal skin color. Normal skin turgor. Extremities: No lower extremity edema. No calf tenderness Neuro: Oriented X 3. No motor deficit. No sensory deficit.No cerebellar signs , cranial nerves II-XII intact Course Course Course Narrative: RME performed by Paris Sin PA-C. Patient is a 28 year old assigned female at presenting to the emergency department with nausea, vomiting, and diarrhea. Patient states her child was recently sick with a similar bug and has been having nausea, vomiting, and diarrhea. Detailed physical exam and review of systems are deferred to the nuclear logging engineer. EKG, labs, and swabs ordered. Patient placed back in the waiting room pending room availability and results. Medications Administered Discontinued Medications Generic Name Dose Route Start Last Admin Trade Name Freq PRN Reason Stop Dose Admin Sodium Chloride 1,000 mls @ 999 mls/hr 04/17/24 20:17 04/17/24 22:21 Ns IV 04/17/24 21:17 Infused .Q1H1M ONE Infusion Sodium Chloride 1,000 mls @ 999 mls/hr 04/17/24 22:32 04/17/24 23:12 Ns IV 04/17/24 23:32 Infused .Q1H1M ONE Infusion Loperamide HCl 4 mg 04/17/24 20:25 04/17/24 21:02 Loperamide Hcl 2 Mg Capsule PO 04/17/24 20:26 4 mg ONCE ONE Administration Ondansetron HCl 4 mg 04/17/24 20:17 04/17/24 20:32 Ondansetron Hcl 4 Mg/2 Ml Vial IVPUSH 04/17/24 20:18 4 mg ONCE ONE Administration Prochlorperazine Edisylate 10 mg 04/17/24 22:32 04/17/24 22:43 Prochlorperazine Edisylate 10 Mg/2 Ml Vial IVPUSH 04/17/24 22:33 10 mg ONCE ONE Administration Medical Decision Making Medical Decision Making [facility] Narrative: Patient has acute gastroenteritis responded to IV fluids and IV antiemetics taking p.o. fluids will discharge will discharge patient home advised take Imodium and Zofran leukocytosis likely from volume contraction Differential Diagnosis Differential Diagnoses: The differential diagnosis associated with the presentation includes Lab Data MDM Lab Attestation statement: I reviewed the patient's lab results. 04/17/24 19:44 04/17/24 19:44 Labs: Lab Results 04/17/24 04/17/24 Range/Units 19:44 21:07 WBC 17.5 H (4.8-10.8) X10*3/uL RBC 4.93 (4.20-5.50) X10*6/uL Hgb 14.5 (12.0-16.0) g/dl Hct 41.6 (37.0-47.0) % MCV 84.4 (80.0-98.0) fL MCH 29.4 (27.0-33.0) pg MCHC 34.9 (31.0-35.0) g/dl RDW 12.1 (11.0-16.0) % Plt Count 306 (160-400) X10*3/uL MPV 9.9 (9.4-12.3) fL Immature Gran % (Auto) 0.3 (0.0-0.4) % Neut % (Auto) 90.3 H (45-73) % Lymph % (Auto) 4.9 L (20-40) % [place] % (Auto) 4.0 (2-11) % Eos % (Auto) 0.3 (0-4) % Baso % (Auto) 0.2 (0-2) % Lymph # (Auto) 0.9 L (1.2-4.9) X10*3/uL [place] # (Auto) 0.7 (0.1-1.2) X10*3/uL Eos # (Auto) 0.1 (0.0-0.4) X10*3/uL Baso # (Auto) 0.0 (0.0-0.2) X10*3/uL Abs Immat Gran (auto) 0.06 H (0.00-0.03) X10*3/uL Absolute Neuts (auto) 15.8 H (2.0-8.3) x10*3/uL Absolute Nucleated RBC 0.000 (0.0-0.012) X10*3/uL Nucleated RBC % (auto) 0.0 (0.0-0.2) /100WBC Smear Tech's Comments VERIFIED PT 12.3 (10.9-12.4) SEC INR 1.1 (0.9-1.1) APTT 30.0 (26.0-36.8) SEC Sodium 141 (135-145) mmol/L Potassium 3.7 (3.3-5.1) mmol/L Chloride 108 (96-108) mmol/L Carbon Dioxide 23 (22-29) mmol/L Anion Gap 14 (12-20) BUN 16 (9-16) mg/dL Creatinine 0.80 (0.5-1.4) mg/dL Estim Creat Clear Calc 75.5 Estimated GFR > 60 Random Glucose 116 H (60-115) mg/dL Calcium 9.8 (8.4-10.2) mg/dL Magnesium 1.8 (1.6-2.6) mg/dL Total Bilirubin 0.9 (0.0-1.0) mg/dL AST 21 (5-31) U/L ALT 15 (0-31) U/L Alkaline Phosphatase 57 (39-117) U/L Troponin I High Sens < 2.7 (<3.5-17.0) ng/L Total Protein 7.3 (6.5-8.0) g/dL Albumin 4.7 (3.5-5.0) g/dL Beta HCG, Quant < 2 mIU/mL C. difficile Tox B Gene NEGATIVE (Negative) Influenza Type A (PCR) NEGATIVE (Negative) Influenza Type B (PCR) NEGATIVE (Negative) RSV RNA Qual (PCR) NEGATIVE (Negative) SARS-CoV-2 RNA (RT-PCR) NEGATIVE (Negative) Discharge Plan Discharge Clinical Impression: Gastroenteritis Patient Disposition: Home, Self-Care Instructions: Gastroenteritis (DC) Additional Instructions: Drink plenty of fluids Medication for nausea as prescribed Imodium for severe diarrhea maximum 4 tablets a day Follow with your PCP if not better Prescriptions: New ondansetron 4 mg tablet,disintegrating 4 mg PO Q6-8H PRN (Reason: nausea and vomiting) Qty: 7 0RF loperamide [Imodium A-D] 2 mg tablet 2 mg PO Q6H PRN (Reason: loose stool) Qty: 14 0RF No Action levofloxacin 500 mg tablet 500 mg PO DAILY 5 Days Qty: 5 0RF Interventions: ED Discharge Assessment Last Done: 04/17/24 23:17 Discharge Date/Time: 04/17/24 23:18 Print Language: [place]
[2024-04-17 19:50] LABS: Basophils Percent Auto 0.2 % (0-2); Eosinophils Absolute Auto 0.1 X10*3/uL (0.0-0.4); Eosinophils Percent Auto 0.3 % (0-4); Hematocrit 41.6 % (37.0-47.0); Hemoglobin 14.5 g/dl (12.0-16.0); Imm Gran Abs Auto 0.06 X10*3/uL (0.00-0.03); Imm Gran Pct Auto 0.3 % (0.0-0.4); Lymphocytes Absolute Auto 0.9 X10*3/uL (1.2-4.9); Lymphocytes Percent Auto 4.9 % (20-40); MANUAL DIFF FLAG SCAN; Mean Corpuscular HGB Conc 34.9 g/dl (31.0-35.0); Mean Corpuscular Hemoglobin 29.4 pg (27.0-33.0); Mean Corpuscular Volume 84.4 fL (80.0-98.0); Mean Platelet Volume 9.9 fL (9.4-12.3); Monocytes Absolute Auto 0.7 X10*3/uL (0.1-1.2); Neutrophils Absolute Auto 15.8 x10*3/uL (2.0-8.3); Neutrophils Percent Auto 90.3 % (45-73); Platelet Count 306 X10*3/uL (160-400); Red Blood Count 4.93 X10*6/uL (4.20-5.50); Red Cell Distribution Width 12.1 % (11.0-16.0); SCAN SMEAR FLAG 1; White Blood Count 17.5 X10*3/uL (4.8-10.8)
[2024-04-17 20:02] LABS: INTERNATIONAL NORM RATIO 1.1 (0.9-1.1); Prothrombin Time 12.3 SEC (10.9-12.4)
[2024-04-17 20:07] LABS: SLIDE REVIEW VERIFIED
[2024-04-17 20:15] LABS: Alanine Aminotransferase 15 U/L (0-31); Albumin Level 4.7 g/dL (3.5-5.0); Alkaline Phosphatase 57 U/L (39-117); Anion Gap 14 (12-20); Aspartate Amino Transferase 21 U/L (5-31); Bilirubin Total 0.9 mg/dL (0.0-1.0); Blood Urea Nitrogen 16 mg/dL (9-16); Calcium 9.8 mg/dL (8.4-10.2); Carbon Dioxide 23 mmol/L (22-29); Chloride 108 mmol/L (96-108); Creatinine Clr Calc Pharmacy 75.5; Estimated Glomerular Filt Rate > 60; Glucose Random 116 mg/dL (60-115); Magnesium 1.8 mg/dL (1.6-2.6); Potassium 3.7 mmol/L (3.3-5.1); Sodium 141 mmol/L (135-145); Total Protein 7.3 g/dL (6.5-8.0)
[2024-04-17 20:29] LABS: HCG Quantitative < 2 mIU/mL; Troponin-I High Sensitivity < 2.7 ng/L (<3.5-17.0)
[2024-04-17] MEDS: 0.9 % Sodium Chloride 1,000 ML 999 ML IV ×2 (20:31→22:43)
[2024-04-17] MEDS: ondansetron HCL 4 MG/2 ML VIAL IVPUSH (20:32)
[2024-04-17 20:34] LABS: Influenza A PCR NEGATIVE (Negative); Influenza B PCR NEGATIVE (Negative); Resp Syncy Virus RNA Qual PCR NEGATIVE (Negative); SARS COV2 PCR INHOUSE NEGATIVE (Negative)
[2024-04-17] MEDS: Loperamide HCl 2 MG CAPSULE 4 MG PO (21:02)
[2024-04-17 22:02] LABS: CDiff Gene PCR NEGATIVE (Negative)
[2024-04-17 22:19] VITALS: BP 106/78; PULSE 112; RESP 16; TEMP 37.1; O2SAT 100
[2024-04-17] MEDS: Prochlorperazine Edisylate 10 MG/2 ML VIAL IVPUSH (22:43)
--- NOTE | 2024-04-17 23:13 | PC.NURSE ---
PT does not want to finish second liter, to be discharged.
[2024-04-17 23:17] VITALS: BP 106/78; PULSE 112; RESP 16; TEMP 37.1; O2SAT 100
[2024-04-18 09:01] LABS: Adenovirus F 40/41 Not Detected (Not Detect.); Astrovirus Not Detected (Not Detect.); Campylobacter Not Detected (Not Detect.); Cryptosporidium Not Detected (Not Detect.); Cyclospora cayetanensis Not Detected (Not Detect.); E. coli EAEC Not Detected (Not Detect.); E. coli EPEC Not Detected (Not Detect.); E. coli ETEC Not Detected (Not Detect.); E. coli STEC Not Detected (Not Detect.); Entamoeba histolytica Not Detected (Not Detect.); Giardia lamblia Not Detected (Not Detect.); Plesiomonas shigelloides Not Detected (Not Detect.); Rotavirus A Not Detected (Not Detect.); Salmonella Not Detected (Not Detect.); Sapovirus Not Detected (Not Detect.); Shigella sp./EIEC Not Detected (Not Detect.); Vibrio Not Detected (Not Detect.); Vibrio Cholerae Not Detected (Not Detect.); Yersinia enterocolitica Not Detected (Not Detect.)
[2024-04-20 09:50] LABS: Norovirus Stool PCR DETECTED
== END 2024-04-17 23:18 | disposition home or self-care (01) ==
PROVIDERS: Physician Assistant Medical; Emergency Provider Internal Medicine
DX: K52.9 Noninfective gastroenteritis and colitis, unspecified (principal); R07.89 Other chest pain; R11.2 Nausea with vomiting, unspecified; R00.0 Tachycardia, unspecified; R10.2 Pelvic and perineal pain; Z03.818 Encounter for observation for suspected exposure to other biological agents ruled out; Z79.899 Other long term (current) drug therapy
CPT/HCPCS: 0241U; 71046; 80053; 83735; 84484; 84702; 85025; 85610; 85730; 87493; 87507; 93005; 96361; 96374; 96375; 99284; 99285; J0737; J2405

== ENCOUNTER → 2024-04-17 19:20 | Outpatient (BNV) | payer OTHER, SELFPAY | PROVIDERS: Emergency Provider Internal Medicine; Visit Provider Internal Medicine Cardiovascular Disease | DX: R07.9 Chest pain, unspecified (principal) | CPT/HCPCS: 93010 ==

== ENCOUNTER → 2024-06-23 18:23 | Outpatient (BNV) | payer OTHER, SELFPAY | PROVIDERS: Emergency Provider Internal Medicine; PCP Physician Assistant; Visit Provider Internal Medicine Cardiovascular Disease | DX: R07.9 Chest pain, unspecified (principal) | CPT/HCPCS: 93010 ==

== ENCOUNTER → 2024-06-23 18:33 | Outpatient (BNV) | payer OTHER, SELFPAY | PROVIDERS: PCP Physician Assistant; Visit Provider Radiology Diagnostic Radiology | DX: R07.9 Chest pain, unspecified (principal) | CPT/HCPCS: 71045 ==